=== PATIENT | female | born 1950 | race Caucasian/White ===

== ENCOUNTER 2020-12-14 06:05 | Day surgery (SDC) | payer BC ==
[2020-12-13 13:30] LABS: BASOPHILS # (AUTO) 0.1 X10'3 (0-0.2); BASOPHILS % (AUTO) 0.6 % (0-1); EOSINOPHILS # (AUTO) 0.5 X10'3 (0-0.9); HEMATOCRIT 42.9 % (35.0-45.0); HEMOGLOBIN 14.5 g/dl (12.0-16.0); LYMPHOCYTES # (AUTO) 1.7 X10'3 (1.1-4.8); LYMPHOCYTES % (AUTO) 18.8 % (21-51); MEAN CORPUSCULAR HEMOGLOBIN 28.6 PG (27.0-31.0); MEAN CORPUSCULAR HGB CONC 33.7 g/dL (33.0-36.5); MEAN CORPUSCULAR VOLUME 84.9 FL (78-98); MEAN PLATELET VOLUME 7.6 FL (7.4-10.4); MONOCYTES # (AUTO) 0.7 X10'3 (0-0.9); MONOCYTES % (AUTO) 7.5 % (2-12); NEUTROPHILS # (AUTO) 6.2 X10'3 (1.8-7.7); NEUTROPHILS % (AUTO) 68.1 % (42-75); PLATELET COUNT 290 X10'3 (140-440); RED BLOOD COUNT 5.06 X10'6 (4.20-5.60); RED CELL DISTRIBUTION WIDTH 14.3 % (11.5-14.5); WHITE BLOOD COUNT 9.1 X10'3 (4.5-11.0)
[2020-12-13 13:47] LABS: ANION GAP 9 (8-16); BLOOD UREA NITROGEN 21 MG/DL (7-18); BUN/CREATININE RATIO 15.9 (6.6-38.0); CALCIUM 9.9 MG/DL (8.5-10.1); CHLORIDE 102 MMOL/L (99-107); CREATININE 1.32 MG/DL (0.40-0.90); GLUCOSE 82 MG/DL (70-104); PARTIAL THROMBOPLASTIN TIME 27 SECONDS (22-32); POTASSIUM 3.9 MMOL/L (3.5-5.1); SODIUM 139 MMOL/L (135-145); TOTAL CARBON DIOXIDE 27.9 MMOL/L (24-32); eGFR 40 ML/MIN
[~2020-12-14] VITALS: Ht 170.2 cm; Wt 103.7 kg
[2020-12-14] VITALS (11 sets, daily range): BP systolic 111–189; BP diastolic 62–86
[2020-12-14] MEDS ORDERED: LORazepam 0.5 MG tablet PO PRN (06:25)
[2020-12-14] MEDS ORDERED: diphenhydrAMINE 25mg capsule PO PRN (06:25)
[2020-12-14] MEDS ORDERED: LIDOcaine/PRILOcaine 5gm cream TP ONE (06:30)
[2020-12-14] MEDS ORDERED: ATOR10TA70 PO (06:41)
[2020-12-14] MEDS ORDERED: BISO10TA PO (06:41)
[2020-12-14] MEDS ORDERED: IPRA3AMP31 (06:41)
[2020-12-14] MEDS ORDERED: FLUT1BLS4 (06:41)
[2020-12-14] MEDS ORDERED: GABA300T25 PO (06:41)
[2020-12-14] MEDS ORDERED: NORT50CA PO (06:41)
[2020-12-14] MEDS ORDERED: METF-438 PO (06:41)
[2020-12-14] MEDS ORDERED: EXEN2AUT (06:41)
[2020-12-14] MEDS ORDERED: METH750T3 PO (06:41)
[2020-12-14] MEDS ORDERED: FURO20TA4 PO (06:41)
[2020-12-14] MEDS ORDERED: LOSA100T57 PO (06:41)
[2020-12-14] MEDS ORDERED: DILT300C53 PO (06:41)
[2020-12-14] MEDS ORDERED: POTA10TA36 (06:41)
[2020-12-14] MEDS ORDERED: ALBU18HF2 INH (06:41)
[2020-12-14] MEDS ORDERED: sodium bicarbonate (8.4%) inj. 150 ML in dextrose 5%-water 1,000 ML IV ONE (06:45)
[2020-12-14] MEDS ORDERED: EYE LUBRICANT (06:50)
[2020-12-14] MEDS ORDERED: IRON PO (06:50)
[2020-12-14] MEDS ORDERED: CHOL10005 PO (06:50)
[2020-12-14] MEDS ORDERED: CALC-965 PO (06:50)
[2020-12-14] MEDS ORDERED: ASPI-1265 PO (06:50)
[2020-12-14] MEDS ORDERED: MULT-1085 PO (06:50)
[2020-12-14] MEDS ORDERED: DULO60CA65 PO (06:50)
[2020-12-14] MEDS ORDERED: MORPHINE SULFATE (06:50)
[2020-12-14] MEDS ORDERED: DOCU100C40 PO (06:50)
[2020-12-14] MEDS ORDERED: BIOT5000 PO (06:50)
[2020-12-14] MEDS ORDERED: LIDOcaine 1% (10mg/ml)w/preservative injection 20ml MDV ONE (07:20)
[2020-12-14] MEDS ORDERED: midazolam 2 mg/2 ml injection ONE (07:20)
[2020-12-14] MEDS ORDERED: verapamil 2.5 mg/ml inj IV ONE (07:20)
[2020-12-14] MEDS ORDERED: heparin 1,000unit/ml 10ml vial 10 ML ONE (07:20)
[2020-12-14] MEDS ORDERED: nitroGLYCERIN-Tridil 50MG/D5W 250 ML IV ONE (07:20)
[2020-12-14] MEDS ORDERED: fentaNYL/PF 50MCG/1 ML 2ML syringe ONE (07:20)
[2020-12-14] MEDS ORDERED: iohexol 350 MG/ML 50ML vial IV ONE (07:21)
[2020-12-14] MEDS ORDERED: iohexol 350MG/ML 100ml bottle IV ONE (07:21)
[2020-12-14] MEDS ORDERED: hydrALAZINE 20mg/ml inj. IV ONE (08:43)
--- NOTE | 2020-12-14 09:20 | NUR ---
Pt back in room and ambulated to bathroom. Pt site stable, vasc band in place. Pt denies pain, denies cp, pt denies pain in her rt wrist, no numbness or tingling. Will continue to monitor.
== END 2020-12-14 14:50 | disposition home or self-care (01) ==
LOC: SSTAY O 06:05
PROVIDERS: ATTEND Internal Medicine Cardiovascular Disease
DX: R94.39 Abnormal result of other cardiovascular function study (principal); I42.9 Cardiomyopathy, unspecified; I13.0 Hypertensive heart and chronic kidney disease with heart failure and stage 1 through stage 4 chronic kidney disease, or unspecified chronic kidney disease; E78.5 Hyperlipidemia, unspecified; E11.22 Type 2 diabetes mellitus with diabetic chronic kidney disease; N18.9 Chronic kidney disease, unspecified; I50.30 Unspecified diastolic (congestive) heart failure; J44.9 Chronic obstructive pulmonary disease, unspecified; G47.30 Sleep apnea, unspecified; Z79.899 Other long term (current) drug therapy; Z90.710 Acquired absence of both cervix and uterus; Z98.890 Other specified postprocedural states; Z88.8 Allergy status to other drugs, medicaments and biological substances; Z82.49 Family history of ischemic heart disease and other diseases of the circulatory system
CPT/HCPCS: 36415; 76937; 80048; 82948; 85025; 85610; 85730; 93005; 93460; 99152; 99153; C1769; C1894; J0360; J1644; J2001; J2250; J3010; Q0163; Q9967; A4620; A6258; C1751; J3490